=== PATIENT | male | born 1950 | race Caucasian/White ===

== ENCOUNTER → 2016-12-23 | Outpatient (CLI) | payer BC ==
[~2016-12-23] MED LIST: ALBU8.5H2 IH; ASPI325T32 PO; ASPI325T4 PO; CHLO1TAB14 PO; CRV6.25T PO; DIPH50CA33 PO; ENLP5T PO; FLUT1DIS3 IH; FRSM40T PO; KCL20TCR PO
--- OUTSIDE RECORDS SUMMARY | 2016-12-23 08:27 | XMS REPORT | Continuity of Care Document ---
Author Author [facility] Organization [facility] Address Unknown Phone Unavailable Allergies Active Description Code Type Severity Reaction Onset Reported/Identified Relationship to Patient Clinical Status Yes No Known Drug Allergies [id number] Drug Allergy Unknown N/ A 02/23/2015 Medications Problems Date Dx Coded Attending Type Code Diagnosis Diagnosed By 02/24/2015 MCGOWAN DO, EDGARDO Ot 278.01 02/24/2015 MCGOWAN DO, EDGARDO Ot 327.23 02/24/2015 MCGOWAN DO, EDGARDO Ot 401.9 02/24/2015 MCGOWAN DO, EDGARDO Ot 428.0 02/24/2015 MCGOWAN DO, EDGARDO Ot V15.82 02/24/2015 MCGOWAN DO, EDGARDO Ot V85.36 02/24/2015 MCGOWAN DO, EDGARDO Ot 278.01 02/24/2015 MCGOWAN DO, EDGARDO Ot 327.23 02/24/2015 MCGOWAN DO, EDGARDO Ot 401.9 02/24/2015 MCGOWAN DO, EDGARDO Ot 428.0 02/24/2015 MCGOWAN DO, EDGARDO Ot V15.82 02/24/2015 MCGOWAN DO, EDGARDO Ot V85.36 02/26/2015 MCGOWAN DO, EDGARDO Ot 278.01 02/26/2015 MCGOWAN DO, EDGARDO Ot 327.23 02/26/2015 MCGOWAN DO, EDGARDO Ot 401.9 02/26/2015 MCGOWAN DO, EDGARDO Ot 428.0 02/26/2015 MCGOWAN DO, EDGARDO Ot V15.82 02/26/2015 MCGOWAN DO, EDGARDO Ot V85.36 02/27/2015 MCGOWAN DO, EDGARDO Ot 278.01 02/27/2015 MCGOWAN DO, EDGARDO Ot 327.23 02/27/2015 MCGOWAN DO, EDGARDO Ot 401.9 02/27/2015 MCGOWAN DO, EDGARDO Ot 414.01 02/27/2015 MCGOWAN DO, EDGARDO Ot 416.8 02/27/2015 MCGOWAN DO, EDGARDO Ot 425.4 02/27/2015 MCGOWAN DO, EDGARDO Ot 428.0 02/27/2015 MCGOWAN DO, EDGARDO Ot 428.23 02/27/2015 MCGOWAN DO, EDGARDO Ot 593.9 02/27/2015 MCGOWAN DO, EDGARDO Ot 790.29 02/27/2015 MCGOWAN DO, EDGARDO Ot V15.82 02/27/2015 MCGOWAN DO, EDGARDO Ot V85.36 02/27/2015 MCGOWAN DO, EDGARDO Ot V85.39 05/26/2015 BUCKNER-RADHA PA, GAGE K Ot 272.4 05/26/2015 BUCKNER-RADHA PA, GAGE K Ot 278.00 05/26/2015 BUCKNER-RADHA PA, GAGE K Ot 401.9 05/26/2015 BUCKNER-RADHA PA, GAGE K Ot 428.0 06/06/2015 BUCKNER-RADHA PA, GAGE K Ot 272.4 06/06/2015 BUCKNER-RADHA PA, GAGE K Ot 278.00 06/06/2015 BUCKNER-RADHA PA, GAGE K Ot 401.9 06/06/2015 BUCKNER-RADHA PA, GAGE K Ot 428.0 06/06/2015 BUCKNER-RADHA PA, GAGE K Ot 272.4 06/06/2015 BUCKNER-RADHA PA, GAGE K Ot 278.00 06/06/2015 BUCKNER-RADHA PA, GAGE K Ot 401.9 06/06/2015 BUCKNER-RADHA PA, GAGE K Ot 428.0 06/06/2015 MCGOWAN DO, EDGARDO Ot 272.1 06/06/2015 MCGOWAN DO, EDGARDO Ot 428.0 06/06/2015 MCGOWAN DO, EDGARDO Ot 496 06/06/2015 MCGOWAN DO, EDGARDO Ot 593.9 06/06/2015 MCGOWAN DO, EDGARDO Ot 780.57 06/06/2015 MCGOWAN DO, EDGARDO Ot 790.6 06/06/2015 MCGOWAN DO, EDGARDO Ot V58.69 06/06/2015 MCGOWAN DO, EDGARDO Ot V70.0 06/06/2015 MCGOWAN DO, EDGARDO Ot 790.29 06/06/2015 MCGOWAN DO, EDGARDO Ot V70.0 06/06/2015 MCGOWAN DO, EDGARDO Ot 790.29 06/06/2015 MCGOWAN DO, EDGARDO Ot V70.0 06/06/2015 MCGOWAN DO, EDGARDO Ot 790.29 06/06/2015 MCGOWAN DO, EDGARDO Ot V70.0 06/06/2015 ANTIONE PA, GAGE West Ot 272.4 06/06/2015 ANTIONE PA, GAGE West Ot 278.00 06/06/2015 ANTIONE PA, GAGE West Ot 401.9 06/06/2015 ANTIONE PA, GAGE K Ot 428.0 06/06/2015 MCGOWAN DO, EDGARDO Ot 272.1 06/06/2015 MCGOWAN DO, EDGARDO Ot 428.0 06/06/2015 MCGOWAN DO, EDGARDO Ot 496 06/06/2015 MCGOWAN DO, EDGARDO Ot 593.9 06/06/2015 MCGOWAN DO, EDGARDO Ot 780.57 06/06/2015 MCGOWAN DO, EDGARDO Ot 790.6 06/06/2015 MCGOWAN DO, EDGARDO Ot V58.69 06/06/2015 MCGOWAN DO, EDGARDO Ot V70.0 06/06/2015 MCGOWAN DO, EDGARDO Ot 790.29 06/06/2015 MCGOWAN DO, EDGARDO Ot V70.0 06/06/2015 MCGOWAN DO, EDGARDO Ot 790.29 06/06/2015 MCGOWAN DO, EDGARDO Ot V70.0 06/06/2015 MCGOWAN DO, EDGARDO Ot 790.29 06/06/2015 MCGOWAN DO, EDGRADO Ot V70.0 06/07/2015 MCGOWAN DO, EDGARDO Ot 790.29 06/07/2015 MCGOWAN DO, EDGARDO Ot V70.0 06/07/2015 MCGOWAN DO, EDGARDO Ot 790.29 06/07/2015 MCGOWAN DO, EDGARDO Ot V70.0 06/09/2015 MCGOWAN DO, EDGARDO Ot 790.29 06/09/2015 MCGOWAN DO, EDGARDO Ot V70.0 06/29/2015 ANTIONE PA, GAGE K Ot 272.4 06/29/2015 ANTIONE PA, GAGE K Ot 278.00 06/29/2015 ANTIONE VALLE, GAGE [place] Ot 401.9 06/29/2015 ANTIONE PA, GAGE [place] Ot 428.0 06/29/2015 MCGOWAN DO, EDGARDO Ot 272.1 06/29/2015 MCGOWAN DO, EDGARDO Ot 428.0 06/29/2015 MCGOWAN DO, EDGARDO Ot 496 06/29/2015 MCGOWAN DO, EDGARDO Ot 593.9 06/29/2015 MCGWOAN DO, EDGARDO Ot 780.57 06/29/2015 MCGOWAN DO, EDGARDO Ot 790.6 06/29/2015 MCGOWAN DO, EDGARDO Ot V58.69 06/29/2015 MCGOWAN DO, EDGARDO Ot V70.0 07/07/2015 ANTIONE VALLE, GAGE [place] Ot 272.4 07/07/2015 ANTIONE VALLE, GAGE [place] Ot 278.00 07/07/2015 ANTIONE VALLE, GAGE [place] Ot 401.9 07/07/2015 ANTIONE VALLE, GAGE [place] Ot 428.0 07/12/2015 MCGOWAN DO, EDGARDO Ot 790.29 07/12/2015 MCGOWAN DO, EDGARDO Ot V70.0 07/18/2015 COLIN DO, YESENIA M Ot 272.4 07/18/2015 COLIN DO, YESENIA M Ot 278.00 07/18/2015 COLIN DO, YESENIA M Ot 401.9 07/18/2015 COLIN DO, YESENIA M Ot 428.0 07/18/2015 COLIN DO, YESENIA M Ot 786.09 07/18/2015 MCGOWAN DO, EDGARDO Ot 272.1 07/18/2015 MCGOWAN DO, EDGARDO Ot 428.0 07/18/2015 MCGOWAN DO, EDGARDO Ot 496 07/18/2015 MCGOWAN DO, EDGARDO Ot 593.9 07/18/2015 MCGOWAN DO, EDGARDO Ot 780.57 07/18/2015 MCGOWAN DO, EDGARDO Ot 790.6 07/18/2015 MCGOWAN DO, EDGARDO Ot V58.69 07/18/2015 MCGOWAN DO, EDGARDO Ot V70.0 07/20/2015 MCGOWAN DO, EDGARDO Ot 250.00 07/20/2015 MCGOWAN DO, EDGARDO Ot 278.00 07/20/2015 MCGOWAN DO, EDGARDO Ot 401.9 08/02/2015 MCGOWAN DO, EDGARDO Ot 250.00 08/02/2015 MCGOWAN DO, EDAGRDO Ot 278.00 08/02/2015 MCGOWAN DO, EDGARDO Ot 401.9 08/08/2015 MCGOWAN DO, EDGARDO Ot 250.00 08/08/2015 MCGOWAN DO, EDGARDO Ot 278.00 08/08/2015 MCGOWAN DO, EDGARDO Ot 401.9 09/25/2015 MCGOWAN DO, EDGARDO Ot 790.29 09/25/2015 MCGOWAN DO, EDGARDO Ot V70.0 09/26/2015 MCGOWAN DO, EDGARDO Ot 790.29 09/26/2015 MCGOWAN DO, EDGARDO Ot V70.0 10/19/2015 MCGOWAN DO, EDGARDO Ot 250.00 10/19/2015 MCGOWAN DO, EDGARDO Ot 278.00 10/19/2015 MCGOWAN DO, EDGARDO Ot 401.9 11/01/2015 MCGOWAN DO, EDGARDO Ot E11.9 11/01/2015 MCGOWAN DO, EDGARDO Ot E66.9 11/01/2015 MCGOWAN DO, EDGARDO Ot I10 11/05/2015 MCGOWAN DO, EDGARDO Ot E11.9 11/05/2015 MCGOWAN DO, EDGARDO Ot E66.9 11/05/2015 MCGOWAN DO, EDGARDO Ot I10 12/18/2015 MCGOWAN DO, EDGARDO Ot 790.29 12/18/2015 MCGOWAN DO, EDGARDO Ot V70.0 12/28/2015 MCGOWAN DO, EDGARDO Ot 790.29 12/28/2015 MCGOWAN DO, EDGARDO Ot V70.0 01/11/2016 LISA GARSIA, ADILSON Sanchez Ot E78.2 01/11/2016 LISA GARSIA, ADILSON Sanchez Ot I10 01/11/2016 LISA GARSIA, ADILSON Sanchez Ot I50.22 01/11/2016 LISA GARSIA, ADILSON Sanchez Ot R06.02 06/25/2016 LISA GARSIA, ADILSON Sanchez Ot E66.9 OBESITY, UNSPECIFIED 06/25/2016 LISA GARSIA, ADILSON Sanchez Ot E78.2 MIXED HYPERLIPIDEMIA 06/25/2016 LISA GARSIA, ADILSON Sanchez Ot G47.34 IDIO SLEEP RELATED NONOBSTRUCTIVE ALVEOL 06/25/2016 ADILSON GONZALEZ MD Ot I10 ESSENTIAL (PRIMARY) HYPERTENSION 06/25/2016 ADILSON GONZALEZ MD Ot R06.02 SHORTNESS OF BREATH 06/26/2016 ADILSON GONZALEZ MD Ot E66.9 OBESITY, UNSPECIFIED 06/26/2016 ADILSON GONZALEZ MD Ot E78.2 MIXED HYPERLIPIDEMIA 06/26/2016 ADILSON GONZALEZ MD Ot G47.34 IDIO SLEEP RELATED NONOBSTRUCTIVE ALVEOL 06/26/2016 ADILSON GONZALEZ MD Ot I10 ESSENTIAL (PRIMARY) HYPERTENSION 06/26/2016 ADILSON GONZALEZ MD Ot R06.02 SHORTNESS OF BREATH 07/04/2016 ADILSON GONZALEZ MD Ot E66.9 OBESITY, UNSPECIFIED 07/04/2016 ADILSON GONZALEZ MD Ot E78.2 MIXED HYPERLIPIDEMIA 07/04/2016 ADILSON GONZALEZ MD Ot G47.34 IDIO SLEEP RELATED NONOBSTRUCTIVE ALVEOL 07/04/2016 ADILSON GONZALEZ MD Ot I10 ESSENTIAL (PRIMARY) HYPERTENSION 07/04/2016 ADILSON GONZALEZ MD Ot R06.02 SHORTNESS OF BREATH 07/04/2016 ADILSON GONZALEZ MD Ot E66.9 OBESITY, UNSPECIFIED 07/04/2016 ADILSON GONZALEZ MD Ot E78.2 MIXED HYPERLIPIDEMIA 07/04/2016 ADILSON GONZALEZ MD Ot G47.34 IDIO SLEEP RELATED NONOBSTRUCTIVE ALVEOL 07/04/2016 ADILSON GONZALEZ MD Ot I10 ESSENTIAL (PRIMARY) HYPERTENSION 07/04/2016 ADILSON GONZALEZ MD Ot R06.02 SHORTNESS OF BREATH 07/15/2016 EDGARDO MCGOWAN DO Ot E11.65 TYPE 2 DIABETES MELLITUS WITH HYPERGLYCE 07/15/2016 EDGARDO MCGOWAN DO Ot E78.0 PURE HYPERCHOLESTEROLEMIA 07/15/2016 EDGARDO MCGOWAN DO Ot E78.1 PURE HYPERGLYCERIDEMIA 07/15/2016 EDGARDO MCGOWAN DO Ot Z00.00 ENCNTR FOR GENERAL ADULT MEDICAL EXAM 07/15/2016 EDGARDO MCGOWAN DO Ot E11.65 TYPE 2 DIABETES MELLITUS WITH HYPERGLYCE 07/15/2016 EDGARDO MCGOWAN DO Ot E78.0 PURE HYPERCHOLESTEROLEMIA 07/15/2016 MCGOWAN DO, EDGARDO Ot E78.1 PURE HYPERGLYCERIDEMIA 07/15/2016 MCGOWAN DO, EDGARDO Ot Z00.00 ENCNTR FOR GENERAL ADULT MEDICAL EXAM W/ 07/19/2016 MCGOWAN DO, EDGARDO Ot E11.65 TYPE 2 DIABETES MELLITUS WITH HYPERGLYCE 07/19/2016 MCGOWAN DO, EDGARDO Ot E78.0 PURE HYPERCHOLESTEROLEMIA 07/19/2016 MCGOWAN DO, EDGARDO Ot E78.1 PURE HYPERGLYCERIDEMIA 07/19/2016 MCGOWAN DO, EDGARDO Ot Z00.00 ENCNTR FOR GENERAL ADULT MEDICAL EXAM W/ 07/24/2016 MCGOWAN DO, EDGARDO Ot E11.65 TYPE 2 DIABETES MELLITUS WITH HYPERGLYCE 07/24/2016 MCGOWAN DO, EDGARDO Ot E78.0 PURE HYPERCHOLESTEROLEMIA 07/24/2016 MCGOWAN DO, EDGARDO Ot E78.1 PURE HYPERGLYCERIDEMIA 07/24/2016 MCGOWAN DO, EDGARDO Ot Z00.00 ENCNTR FOR GENERAL ADULT MEDICAL EXAM W/ Procedures Results Test Result Range Complete blood count (CBC) with automated white blood cell (WBC) differential - 07/13/16 13:42 Blood leukocytes automated count (number/volume) 10.6 10*3/ uL 4.3-11.0 Blood erythrocytes automated count (number/volume) 5.46 10*6 /uL 4.35-5.85 Venous blood hemoglobin measurement (mass/volume) 15.7 g/dL 13.3-17.7 Blood hematocrit (volume fraction) 45 % 40-54 Automated erythrocyte mean corpuscular volume 83 [foz_us] 80-99 Automated erythrocyte mean corpuscular hemoglobin (mass per erythrocyte) 29 pg 25-34 Automated erythrocyte mean corpuscular hemoglobin concentration measurement ( mass/volume) 35 g/dL 32-36 Automated erythrocyte distribution width ratio 14.2 % 10.0-14.5 Automated blood platelet count (count/volume) 176 10*3/uL 130-400 Automated blood platelet mean volume measurement 10.8 [foz_ us] 7.4-10.4 Automated blood neutrophils/100 leukocytes 71 % 42-75 Automated blood lymphocytes/100 leukocytes 21 % 12-44 Blood monocytes/100 leukocytes 6 % 0-12 Automated blood eosinophils/100 leukocytes 2 % 0-10 Automated blood basophils/100 leukocytes 0 % 0-10 Blood neutrophils automated count (number/volume) 7.5 10*3 1.8-7.8 Blood lymphocytes automated count (number/volume) 2.2 10*3 1.0-4.0 Blood monocytes automated count (number/volume) 0.6 10*3 0.0-1.0 Automated eosinophil count 0.2 10*3/uL 0.0-0.3 Automated blood basophil count (count/volume) 0.0 10*3/uL 0.0-0.1 Comprehensive metabolic panel - 07/13/16 13:42 Serum or plasma sodium measurement (moles/volume) 138 mmol/ L 135-145 Serum or plasma potassium measurement (moles/volume) 4.0 mmol/L 3.6-5.0 Serum or plasma chloride measurement (moles/volume) 107 mmol /L 98-107 Carbon dioxide 20 mmol/L 21-32 Serum or plasma anion gap determination (moles/volume) 11 mmol/L 5-14 Serum or plasma urea nitrogen measurement (mass/volume) 14 mg/dL 7-18 Serum or plasma creatinine measurement (mass/volume) 0.93 mg /dL 0.60-1.30 Serum or plasma urea nitrogen/creatinine mass ratio 15 NRG Serum or plasma creatinine measurement with calculation of estimated glomerular filtration rate > NRG Serum or plasma glucose measurement (mass/volume) 86 mg/dL 70-105 Serum or plasma calcium measurement (mass/volume) 9.5 mg/dL 8.5-10.1 Serum or plasma total bilirubin measurement (mass/volume) 0.7 mg/dL 0.1-1.0 Serum or plasma alkaline phosphatase measurement (enzymatic activity/volume) 79 U/L 40-136 Serum or plasma aspartate aminotransferase measurement (enzymatic activity/ volume) 19 U/L 5-34 Serum or plasma alanine aminotransferase measurement (enzymatic activity/volume ) 21 U/L 0-55 Serum or plasma protein measurement (mass/volume) 6.9 g/dL 6.4-8.2 Serum or plasma albumin measurement (mass/volume) 4.2 g/dL 3.2-4.5 Serum or plasma triglyceride measurement (mass/volume) - 07/13/16 13:42 Serum or plasma triglyceride measurement (mass/volume) 270 mg/dL <150 Serum or plasma cholesterol measurement (mass/volume) - 07/13/16 13:42 Serum or plasma cholesterol measurement (mass/volume) 188 mg /dL < 200 Hemoglobin A1c - 07/13/16 13:42 Hemoglobin A1c 5.5 % 4.5-6.2 THYROID STIMULATING HORMONE - 07/13/16 13:42 THYROID STIMULATING HORMONE 0.97 u[iU]/mL 0.35-4.94 Encounters ACCT No. Visit Date/Time Discharge Status Pt. Type Provider Facility Loc./Unit Complaint [id number] 08/07/2015 17:00:00 2015 00:01:00 DIS Outpatient MCGOWAN DO, EDGARDO [facility] DSME [id number] 07/31/2015 18:00:00 2014 00:01:00 DIS Outpatient MCGOWAN DO, EDGARDO [facility] DSME [id number] 06/30/2015 12:52:00 2014 23:59:59 CLS Outpatient YESENIA SHAW DO [facility] RT [id number] 05/30/2015 08:43:00 2014 23:59:59 CLS Outpatient MCGOWAN DO, EDGARDO [facility] LAB [id number] 05/26/2015 09:03:00 2014 23:59:59 CLS Outpatient MCGOWAN DO, EDGARDO [facility] LAB [id number] 05/18/2015 13:50:00 2014 23:59:59 CLS Outpatient GAGE BENITEZ [facility] CARD [id number] 02/23/2015 18:51:00 2014 14:50:00 DIS Inpatient MCGOWAN DO, EDGARDO [facility] CSD [id number] 07/13/2016 13:30:00 ACT Outpatient MCGOWAN DO, EDGARDO [facility] LAB Z00.00, E.78.0, E11.65 [id number] 07/12/2016 11:43:00 ACT Outpatient MCGOWAN DO, EDGARDO [facility] LAB Z00.00 [id number] 06/25/2016 11:12:00 ACT Outpatient LISA GARSIA, ADILSON Sanchez [facility] RAD HTN,HLD,NOCTURNAL HYPOXEMIA [id number] 12/28/2015 13:18:00 ACT Outpatient LISA GARSIA, ADILSON Sanchez [facility] CARD [id number] 11/06/2015 10:00:00 PEN Preadmit EDGARDO MCGOWAN DO [facility] DSME
[2016-12-23 09:01] LABS: ALBUMIN 4.1 G/DL (3.2-4.5); BILIRUBIN,DIRECT 0.2 MG/DL (0.0-0.3); BILIRUBIN,INDIRECT 0.5 MG/DL; BILIRUBIN,TOTAL 0.7 MG/DL (0.1-1.0); TOTAL PROTEIN 6.8 G/DL (6.4-8.2)
== END ==
LOC: LAB 08:24
PROVIDERS: ATTEND Physician Assistant
DX: I10 Essential (primary) hypertension (principal); E78.2 Mixed hyperlipidemia
CPT/HCPCS: 36415; 80061; 80076

== ENCOUNTER → 2017-03-03 | Outpatient (CLI) | payer BC ==
--- NOTE | 2017-03-04 13:38 | ECHOCARDIOGRAPHY REPORT ---
DATE OF SERVICE: 03/03/2017 PROCEDURE: 2D Echocardiogram REFERRING PHYSICIAN: Dr. María Roman. MEASUREMENTS: LVID end diastolic 6.0. IVS thickness 1.3. LVPW thickness 1.3. Left atrial diameter 3.2. Ejection fraction 50%. FINDINGS: 1. Technically difficult study. 2. The left ventricle is normal in size with moderate left ventricular hypertrophy noted diffusely. Endocardium was not well visualized in all segment. There is hypokinesia noted involving the lateral wall and inferolateral segment. Systolic function is the lower normal limit. Estimated ejection fraction 50%. 3. The left atrium is the normal in size. No clots or thrombus were seen within the left atrium. 4. The right atrium and right ventricle are normal in size. No clot or thrombus were seen within the right side. 5. Mitral valve is calcified with mild mitral regurgitation noted by color Doppler flow. No mitral valve prolapse. No mitral valve stenosis. 6. Aortic valve leaflets were not well visualized. There is no significant aortic stenosis noted. Mild aortic regurgitation noted by color Doppler flow. 7. Tricuspid valve is normal in morphology with mild tricuspid regurgitation noted by color Doppler flow. Doppler echo across tricuspid valve estimated pulmonary artery pressure of 13 plus right atrial pressure. 8. Pulmonic valve is functioning normally. 9. No pericardial effusion. CONCLUSION: 1. Moderate left ventricular hypertrophy noted diffusely. Endocardium was not well visualized all segments. Hypokinesia involving the lateral wall and inferolateral segment. Estimated ejection fraction 50%. 2. Mild mitral and tricuspid regurgitation. 3. Mild aortic regurgitation. 4. Estimated pulmonary artery pressure of 20 mmHg. Job ID: [id number] DocumentID: [id number] Dictated Date: 03/03/2017 17:32:56 Camera Repair Technician Date: 03/03/2017 17:54:37 Dictated By: ADILSON GONZALEZ MD
== END ==
LOC: CARD 12:19
PROVIDERS: ATTEND Internal Medicine Cardiovascular Disease
DX: I50.22 Chronic systolic (congestive) heart failure (principal); J44.9 Chronic obstructive pulmonary disease, unspecified; R06.02 Shortness of breath; E78.2 Mixed hyperlipidemia; I10 Essential (primary) hypertension; E66.9 Obesity, unspecified
CPT/HCPCS: 93306

== ENCOUNTER → 2018-08-20 | Outpatient (CLI) | payer BC, MEDICARE ==
[~2018-08-20] MED LIST changes: +IOHEXOL 350 MG/ML 150 ML (OMNIPAQUE 350) VIAL IV ONE; +NS 250 ML (IVPB) BAG IV ONE
[2018-08-20 12:15] LABS: BUN/CREATININE RATIO 13; CREATININE SERUM 0.98 MG/DL (0.60-1.30); GFR ESTIMATED > 60
--- NOTE | 2018-08-20 15:55 | Diagnostic Imaging Report ---
PROCEDURE: CT angiography of the chest with contrast. TECHNIQUE: Multiple contiguous axial images were obtained through the chest after uneventful bolus administration of intravenous contrast. 2D reconstructed CTA MIP acquisitions were also performed. INDICATION: Thoracic aneurysm. Comparison is made with prior CT angiogram of the chest from 06/25/2016. FINDINGS: The ascending thoracic aorta appears to be stable measuring 4.6 cm in diameter. Aortic arch and descending thoracic aorta are normal caliber. No dissection is seen. Visualized pulmonary arteries are unremarkable. No axillary, hilar or mediastinal lymphadenopathy is seen. There is no pericardial or pleural fluid. Lungs appear to be clear. Minimal scarring or atelectasis in the lingula is noted. Upper abdomen does show hepatic steatosis. IMPRESSION: 1. Stable mild dilatation of the ascending thoracic aorta when compared with prior CT from 06/25/2016. 2. Hepatic steatosis. Dictated by: Dictated on workstation # [id number]
== END ==
LOC: RAD 11:37
PROVIDERS: ATTEND Internal Medicine Cardiovascular Disease
DX: I77.810 Thoracic aortic ectasia (principal); K76.0 Fatty (change of) liver, not elsewhere classified; I11.0 Hypertensive heart disease with heart failure; I50.22 Chronic systolic (congestive) heart failure; E78.2 Mixed hyperlipidemia; E66.9 Obesity, unspecified
CPT/HCPCS: 36415; 71275; 82565; 84520; 93306

== ENCOUNTER 2020-01-03 08:32 | Emergency (ER) | payer MEDICARE ==
[~2020-01-03] VITALS: Ht 182 cm; Wt 125.0 kg
[~2020-01-03 08:32] MED LIST changes: -IOHEXOL 350 MG/ML 150 ML (OMNIPAQUE 350) VIAL IV ONE; -NS 250 ML (IVPB) BAG IV ONE
[2020-01-03] MEDS ORDERED: EPINEPHrine 0.1 MG/ML 10 ML (HOSPIRA) SYR IJ ONE (08:33)
--- NOTE | 2020-01-03 08:33 | NUR ---
PT ARRIVED PER EMS CPR CONT, PT HAS HAD 4 EPI AND 1 AMP OF BICARB, I GEL INPLACE BVM
--- NOTE | 2020-01-03 08:33 | NUR ---
0833 PT HAS SL IN L EJ AND IO IN L TIBIA. CPR CONT 0835 PULSE CHECK, 0 PULSE CPR CONT 0836 EPI 1 AMP GIVEN CPR CONT 0837 IVF STARTED PER IO 0838 PULSE CHECK NO PULSE CPR CONT. EPI 1 AMP GIVEN 0839 END TIDAL 15 0841 EPI 1 AMP GIVEN 0843 PULSE CHECK NO PULSE 0843 RODRIGUEZ INSERTED #16 0848 SPOKE W FAMILY PULSE CHECK NO PULSE. TOD 0848
[2020-01-03] MEDS ORDERED: LACTATED RINGERS 1,000 ML IV ONE (08:51)
--- NOTE | 2020-01-03 08:55 | NUR ---
Received page re a code in the ER upon arrival I contacted pts sisters and pts daughter. Pt had , I facilitated interaction with ED staff and accompanied family for a viewing of the body and had bedside prayer. Family was coping well and left ED to contact other family.
--- NOTE | 2020-01-03 09:00 | ED CPR ---
HPI-CPR General Chief Complaint: Code Blue Stated Complaint: SEIZURE Source of Information: EMS, Family, Old Records Exam Limitations: Physical Impairments History of Present Illness Date Seen by Provider: Jan 03, 2020 Time Seen by Provider: 08:33 Initial Comments This 69-year-old gentleman is brought to the emergency room via EMS with ongoing CPR. He was eating at a local restaurant with his sister when he suddenly developed a sharp pain in his upper back that radiated up to his head. He then developed seizure-like activity and became unresponsive. EMS reports he was mohan te agitated when they arrived on scene. During their assessment he became unresponsive and was in PEA. CPR was initiated. He had no shockable rhythm. EMS administered a total of 4 doses of epinephrine 1 mg by IV/I&O route. One amp of sodium bicarbonate was also administered. Airway was secured with an I- gel device. Patient was cyanotic upon arrival. Patient has a known history of heart failure and nonischemic cardiomyopathy. Fingerstick blood sugar per EMS was 110. Patient does not have a known seizure history. Allergies and Home Medications Allergies Coded Allergies: No Known Drug Allergies (Unverified , 02/23/15) Home Medications Albuterol 8.5 Gm Hfa.aer.ad, 2 PUFF IH RTQ4HR PRN for DYSPNEA 1 PUFFS Prescribed by: YESENIA SHAW on 02/27/15 1132 Aspirin 325 Mg Tab, 325 MG PO DAILY Prescribed by: EDGARDO MCGOWAN on 02/27/15946 Carvedilol 6.25 Mg Tab, 6.25 MG PO BID Prescribed by: EDGARDO MCGOWAN on 02/27/15946 Enalapril Maleate 5 Mg Tab, 5 MG PO DAILY Prescribed by: EDGARDO MCGOWAN on 02/27/15946 Fluticasone/Salmeterol 1 Each Disk.w.dev, 0 IH BID 1 PUFF Prescribed by: YESENIA SHAW on 02/27/15 1131 Furosemide 40 Mg Tab, 40 MG PO DAILY Prescribed by: EDGARDO MCGOWAN on 02/27/15946 Potassium Chloride 20 Meq Tab, 20 MEQ PO DAILY@0700 Prescribed by: EDGARDO MCGOWAN on 02/27/15946 Patient Home Medication List Home Medication List Reviewed: Yes Review of Systems Review of Systems Constitutional: see HPI EENTM: See HPI Respiratory: See HPI Cardiovascular: See HPI Gastrointestinal: No Symptoms Reported Genitourinary: No Symptoms Reported Musculoskeletal: no symptoms reported Skin: no symptoms reported Psychiatric/Neurological: See HPI Endocrine: No Symptoms Reported Hematologic/Lymphatic: No Symptoms Reported Past Xnzmndg-Wwconj-Rcoxzv Hx Past Med/Social Hx: Reviewed and Corrections made Past Medical History Surgeries: Yes Abdominal (hernia), Tonsillectomy, Vasectomy Respiratory: No Cardiac: Yes (heart failure) Cardiomyopathy (nonischemic) Neurological: No Reproductive Disorders: No Genitourinary: No Gastrointestinal: No Musculoskeletal: No Endocrine: No HEENT: No Cancer: No Psychosocial: No Integumentary: No Adverse Reaction/Blood Tranf: No Family Medical History Reviewed Nursing Family Hx No Pertinent Family Hx Physical Exam Vital Signs Vital Signs - First Documented 01/03/20 08:33 Temp 36.1 Pulse 0 Resp 0 B/P (MAP) 178/65 (102) Pulse Ox 0 Capillary Refill : Height, Weight, BMI Height: 5'6.00" Weight: 225lbs. 0.0oz. [id number]; BMI Method:Stated General Appearance: WD/WN, Obese, Other (unresponsive and cyanotic with CPR in progress) HEENT: Other (cyanotic) Neck: Normal Inspection Respiratory: Lungs Clear, Other (patient receiving bag ventilation with I-Gel airway in place. Breath sounds present and equal bilaterally) Gastrointestinal: Soft; No Distended Genital/Rectal: Normal Genital Exam Extremity: Normal Inspection Neurologic/Psychiatric: Other (unresponsive) Skin: Warm/Dry, Cyanosis Progress/Results/Core Measures Results/Orders Lab Results Laboratory Tests Test 01/03/20 08:45 Range/Units White Blood Count 10.0 4.3-11.0 10^3/uL Red Blood Count 5.60 4.35-5.85 10^6/uL Hemoglobin 15.7 13.3-17.7 G/DL Hematocrit 52 40-54 % Mean Corpuscular Volume 93 80-99 FL Mean Corpuscular Hemoglobin 28 25-34 PG Mean Corpuscular Hemoglobin Concent 30 L 32-36 G/DL Red Cell Distribution Width 14.9 H 10.0-14.5 % Platelet Count 117 L 130-400 10^3/uL Mean Platelet Volume 12.9 H 7.4-10.4 FL Neutrophils (%) (Auto) 60 42-75 % Lymphocytes (%) (Auto) 33 12-44 % Monocytes (%) (Auto) 6 0-12 % Eosinophils (%) (Auto) 1 0-10 % Basophils (%) (Auto) 1 0-10 % Neutrophils # (Auto) 6.0 1.8-7.8 X 10^3 Lymphocytes # (Auto) 3.3 1.0-4.0 X 10^3 Monocytes # (Auto) 0.6 0.0-1.0 X 10^3 Eosinophils # (Auto) 0.1 0.0-0.3 10^3/uL Basophils # (Auto) 0.1 0.0-0.1 10^3/uL Prothrombin Time 17.4 H 12.2-14.7 SEC INR Comment 1.4 0.8-1.4 Sodium Level 144 135-145 MMOL/L Potassium Level 5.2 H 3.6-5.0 MMOL/L Chloride Level 103 98-107 MMOL/L Carbon Dioxide Level 8 *L 21-32 MMOL/L Anion Gap 33 H 5-14 MMOL/L Blood Urea Nitrogen 13 7-18 MG/DL Creatinine 1.71 H 0.60-1.30 MG/DL Estimat Glomerular Filtration Rate 40 BUN/Creatinine Ratio 8 Glucose Level 446 *H 70-105 MG/DL Calcium Level 9.7 8.5-10.1 MG/DL Corrected Calcium 10.1 8.5-10.1 MG/DL Total Bilirubin 0.3 0.1-1.0 MG/DL Aspartate Amino Transf (AST/SGOT) 103 H 5-34 U/L Alanine Aminotransferase (ALT/SGPT) 131 H 0-55 U/L Alkaline Phosphatase 105 40-136 U/L Total Protein 6.5 6.4-8.2 GM/DL Albumin 3.5 3.2-4.5 GM/DL My Orders Orders - JENNA MOSQUEDA MD Lactated Ringers (Lr 1000 Ml Iv Solution (01/03/20 08:51) Cbc With Automated Diff (01/03/20 09:01) Comprehensive Metabolic Panel (01/03/20 09:01) Protime With Inr (01/03/20 09:01) Epinephrine Emergency Syringe (Epinephr (01/03/20 08:33) Vital Signs/I&O 01/03/20 01/03/20 08:33 11:30 Temp 36.1 36.1 Pulse 0 0 Resp 0 0 B/P (MAP) 178/65 (102) 178/65 (102) Pulse Ox 0 0 Critical Care Note Critical Care Start Time: 08:33 Stop Time: 08:48 Progress CPR was continued upon arrival 08:33. Pulse check at 08:35 revealed PEA and CPR was continued. Epinephrine 1 mg was administered at 08:36. Warmed LR was started at 08:37. Pulse check at 08:38 revealed no pulse and PEA. CPR was continued. The next dose of epinephrine 1 mg was also administered. A third dose of epinephrine 1 mg was administered at 08:41. Pulse check at 08:43 revealed no pulse with PEA. During the resuscitation efforts the family was updated and informed of lack of response to resuscitation efforts. Further resuscitation efforts were felt to be futile. With family's permission resuscitation efforts were terminated at 08:48 when a final pulse check revealed no pulse. Patient never had a shockable rhythm. Time of was pronounced at 08:48. Molecular Pathologist was brought to the room to provide services to family. Family's questions were answered. Dr. Mcgowan was notified. Departure Impression Primary Impression: Cardiac arrest Additional Impression: PEA (Pulseless electrical activity) Disposition: 20 Condition: Departure-Patient Inst. Referrals: EDGARDO MCGOWAN DO (PCP/Family) Primary Care Physician Copy Copies To 1: EDGARDO MCGOWAN DO Copies To 2: ADILSON GONZALEZ MD, JOSHUA T MD Jan 03, 2020 09:00
[2020-01-03 09:09] LABS: BASOPHILS # (AUTO) 0.1 10^3/uL (0.0-0.1); BASOPHILS % (AUTO) 1 % (0-10); EOSINOPHILS # (AUTO) 0.1 10^3/uL (0.0-0.3); EOSINOPHILS % (AUTO) 1 % (0-10); HEMATOCRIT 52 % (40-54); HEMOGLOBIN 15.7 G/DL (13.3-17.7); LYMPHOCYTES # (AUTO) 3.3 X 10^3 (1.0-4.0); LYMPHOCYTES % (AUTO) 33 % (12-44); MEAN CORPUSCULAR HEMOGLOBIN 28 PG (25-34); MEAN CORPUSCULAR HGB CONC 30 G/DL (32-36); MEAN CORPUSCULAR VOLUME 93 FL (80-99); MEAN PLATELET VOLUME 12.9 FL (7.4-10.4); MONOCYTES # (AUTO) 0.6 X 10^3 (0.0-1.0); MONOCYTES % (AUTO) 6 % (0-12); NEUTROPHILS % (AUTO) 60 % (42-75); PLATELET COUNT 117 10^3/uL (130-400); RED CELL DISTRIBUTION WIDTH 14.9 % (10.0-14.5)
[2020-01-03 09:15] LABS: INR 1.4 (0.8-1.4); PROTHROMBIN TIME PATIENT 17.4 SEC (12.2-14.7)
[2020-01-03 09:25] LABS: ALBUMIN 3.5 GM/DL (3.2-4.5); BILIRUBIN,TOTAL 0.3 MG/DL (0.1-1.0); CALCIUM 9.7 MG/DL (8.5-10.1); CREATININE SERUM 1.71 MG/DL (0.60-1.30); POTASSIUM 5.2 MMOL/L (3.6-5.0); TOTAL PROTEIN 6.5 GM/DL (6.4-8.2)
--- NOTE | 2020-01-03 10:15 | NUR ---
PT BODY MOVED TO ROOM 507 FOR ED CONVIENCE
--- NOTE | 2020-01-03 11:24 | NUR ---
Pt's 3 sisters and nephew present at the bedside in rm 507. One sister just arrived from [place] not anticipating she would be present with her brother's . I facilitated storytelling and offering active listening and grief support. The family has routinely gone to breakfast together. They said the pt recently started asking them which one may first. The family said the pt's daughter is anticipated to lead in taking care of arrangements and services.
[2020-01-03 11:30] VITALS: BP 178/65
== END 2020-01-03 10:19 | disposition expired ==
LOC: EDUNIT# 08:32 → ER 08:32
DX: I46.9 Cardiac arrest, cause unspecified (principal); Z79.82 Long term (current) use of aspirin; Z79.51 Long term (current) use of inhaled steroids
CPT/HCPCS: 36415; 80053; 85025; 85610